=== PATIENT | male | born 1985 | race Caucasian/White ===

== ENCOUNTER → 2020-03-21 | Outpatient (CLI) | payer OTHER ==
[~2020-03-21] MED LIST: METHACHOLINE KIT (J7674) INH ONE
--- NOTE | 2020-03-21 10:28 | PFTRPT ---
Visit Date: 03/21/2020 Referring Doctor: CHRISTI Tran Marcus, M Height: 66.50 Inches Weight: 167.00 Lbs BSA: 1.86 Diagnosis: R06.00 QUALITY: Study of excellent technical quality. PROCEDURE: Under protocol, methacholine was administered. At a dose of 0.25 mg or 1.375 CDUs, a 22% decline in the FEV1 was noted. PC of 0.19 is significant. Flow rates did return to baseline post-bronchodilator administration. IMPRESSION: Positive methacholine challenge study. MTDD
--- NOTE | 2020-03-26 11:21 | METHCHAL ---
METHACHOLINE CHALLENGE STUDY DATE: 03/21/2020 ORDERED BY: Isabel Toscano QUALITY: Study of excellent technical quality. PROCEDURE: Under protocol, methacholine was administered. At a dose of 0.25 mg or 1.375 CDUs, a 22% decline in the FEV1 was noted. PC of 0.19 is significant. Flow rates did return to baseline post-bronchodilator administration. IMPRESSION: Positive methacholine challenge study. MTDD
== END ==
LOC: M CARPUL 09:47
PROVIDERS: ATTEND Physician Assistant
DX: R06.00 Dyspnea, unspecified (principal)
CPT/HCPCS: 94070; J7674